=== PATIENT | female | born 1975 | race Caucasian/White ===

== ENCOUNTER 2018-01-04 19:10 | Emergency (ER) | payer OTHER ==
[~2018-01-04] VITALS: Ht 162.6 cm; Wt 56.7 kg
[2018-01-04] MEDS ORDERED: AMOXICILLIN500 M1 (19:35)
[2018-01-04] MEDS ORDERED: KETO10TA2 PO (22:57)
[2018-01-04] MEDS ORDERED: CYCLOBENZAPRINE10 MG PO (22:57)
[2018-01-04] MEDS ORDERED: ORPHENADRINE C100 MG PO (22:57)
== END 2018-01-04 23:42 | disposition home or self-care (01) ==
LOC: ER 19:10
DX: M62.838 Other muscle spasm (principal)

== ENCOUNTER 2019-06-15 17:43 | Emergency (ER) | payer OTHER ==
[~2019-06-15] VITALS: Ht 162.6 cm; Wt 63.5 kg
[~2019-06-15 17:43] MED LIST: AMOXICILLIN500 M1; CYCLOBENZAPRINE10 MG PO; KETO10TA2 PO; ORPHENADRINE C100 MG PO
== END 2019-06-15 18:08 | disposition home or self-care (01) ==
LOC: ER 17:43
DX: M54.5 Low back pain (principal)

== ENCOUNTER 2021-02-02 10:10 | Emergency (ER) | payer OTHER ==
[~2021-02-02] VITALS: Ht 162.6 cm; Wt 66.7 kg
== END 2021-02-02 12:44 | disposition home or self-care (01) ==
LOC: ER 10:10
DX: J02.8 Acute pharyngitis due to other specified organisms (principal); B96.89 Other specified bacterial agents as the cause of diseases classified elsewhere